=== PATIENT | male | born 1965 | race Caucasian/White ===

== ENCOUNTER 2017-09-04 19:05 | Emergency (ER) | payer OTHER ==
[2017-09-04 19:30] VITALS: BP 133/84; PULSE 70; RESP 18; TEMP 98.4; O2SAT 100
--- NOTE | 2017-09-04 21:13 | C.PDOC ---
History Of Present Illness Patient is a 52 y/o male who presents to the ED with his with a complaint of a skin rash on the distal portion of his right leg for the last 4 to 5 days. Patient notes the rash feeling very itchy and treated it with antibiotic cream. Beleives it has been getting bigger prompting ED visit. Patient notes playing soccer in a men's league but denies any trauma. Does admit that his boots edge reach where the rash started. Denies pain. No other physical complaints at this time. Time Seen by Provider: 09/04/17 20:46 Chief Complaint (Nursing): Abnormal Skin Integrity History Per: Patient History/Exam Limitations: no limitations Onset/Duration Of Symptoms: Days (4-5 days) Current Symptoms Are (Timing): Still Present Quality Of Symptoms: Itching. denies: Painful, Swollen Recent travel outside of the [place]: No Additional History Per: Patient Past Medical History Reviewed: Historical Data, Nursing Documentation, Vital Signs Vital Signs: Last Vital Signs Temp 98.4 F 09/04/17 19:27 Pulse 70 09/04/17 19:27 Resp 18 09/04/17 19:27 BP 133/84 09/04/17 19:27 Pulse Ox 100 09/04/17 22:17 - Medical History PMH: HTN (DOES NOT TAKE MEDICATIONS) Denies: Diabetes, Hepatitis, HIV, Seizures, Sexually Transmitted Disease Surgical History: No Surg Hx Family History: States: Unknown Family Hx - Social History Hx Alcohol Use: Yes Hx Substance Use: No - Immunization History Hx Tetanus Toxoid Vaccination: Yes Hx Influenza Vaccination: Yes Hx Pneumococcal Vaccination: Yes Review Of Systems Constitutional: Negative for: Fever, Chills Musculoskeletal: Negative for: Leg Pain Skin: Positive for: Rash (distal portion of right leg. ) Physical Exam - Physical Exam Appears: Well, Non-toxic, No Acute Distress Skin: Warm, Dry, Rash (maculopapular rash with central hyperpigmentation to right medial ankle; well demarcated and erythematous) Head: Atraumatic, Normacephalic Eye(s): bilateral: Normal Inspection, EOMI Nose: Normal Oral Mucosa: Moist Chest: Symmetrical Respiratory: No Accessory Muscle Use Extremity: Normal ROM (x4), No Tenderness, No Swelling (distal portion of right leg) Pulses: Left Dorsalis Pedis: Normal, Right Dorsalis Pedis: Normal Neurological/Psych: Oriented x3, Normal Speech, Normal Cognition, Normal Motor, Normal Sensation Gait: Steady ED Course And Treatment O2 Sat by Pulse Oximetry: 100 (room air) Pulse Ox Interpretation: Normal Progress Note: Pt was instructed to follow up with pantographer in 1-2 days ore turn to eR if symptoms persist or worsen. Disposition - Disposition Disposition: HOME/ ROUTINE Disposition Time: 21:13 Condition: STABLE Additional Instructions: Follow up with your pantographer in 2-5 days for further evaluation. Take medications as prescribed. Return to the emergency department at any time if symptoms persist or worsen. Prescriptions: Clotrimazole/Betamethasone [Lotrisone] 15 gm EXT BID 10 Days tube Instructions: Dermatitis (ED) Forms: [facility] (Maori) - Clinical Impression Clinical Impression: Rash - Scribe Statement The provider has reviewed the documentation as recorded by the Scribe Sara Duval All medical record entries made by the Scribe were at my direction and personally dictated by me. I have reviewed the chart and agree that the record accurately reflects my personal performance of the history, physical exam, medical decision making, and the department course for this patient. I have also personally directed, reviewed, and agree with the discharge instructions and disposition.
== END 2017-09-04 21:32 | disposition home or self-care (01) ==
LOC: C.ER 19:05
DX: R21 Rash and other nonspecific skin eruption (principal)

== ENCOUNTER 2018-08-14 23:23 | Emergency (ER) | payer SELFPAY ==
--- NOTE | 2018-08-14 23:35 | C.PDOC ---
History Of Present Illness 53-year-old male with PMHx of hypertension presents to the ED with complaints of intermittent dizziness, onset at 3:30pm this afternoon. Patient describes the dizziness as vertigo-like, and notes the symptoms come and go when he moves his head. Also reports feeling anxious and stressed recently with work. Patient notes that when he took a shower tonight, the dizziness recurred, and his blood pressure was found to be 170/94 at home. Patient is seeing his PMD regarding his blood pressure but has not yet been started on medication. Otherwise patient denies any chest pain, SOB, nausea, vomiting, fever, chills, night sweats, melena, hematochezia, headache, numbness, tingling, or extremity weakness. On arrival patient has no dizziness. Time Seen by Provider: 08/14/18 23:34 Chief Complaint (Nursing): Dizziness/Lightheaded History Per: Patient History/Exam Limitations: no limitations Onset/Duration Of Symptoms: Intermittent Episodes Current Symptoms Are (Timing): Better Associated Symptoms Preceding Syncopal Episode: Vertigo Fall Associated With With Symptoms: No, No Injury As Result Of Fall Past Medical History Reviewed: Historical Data, Nursing Documentation, Vital Signs Vital Signs: Last Vital Signs Temp 101.7 F H 08/14/18 23:26 Pulse 86 08/15/18 01:42 Resp 16 08/15/18 01:42 BP 122/70 08/15/18 01:42 Pulse Ox 97 08/15/18 02:40 - Medical History PMH: HTN (DOES NOT TAKE MEDICATIONS) Denies: Diabetes, Hepatitis, HIV, Hypercholesterolemia, Hyperlipidemia, Seizures, Sexually Transmitted Disease Surgical History: No Surg Hx Family History: States: Unknown Family Hx Denies: Stroke, [place] - Social History Hx Tobacco Use: No Hx Alcohol Use: Yes (social, last used Tuesday) Hx Substance Use: No - Immunization History Hx Tetanus Toxoid Vaccination: Yes Hx Influenza Vaccination: Yes Hx Pneumococcal Vaccination: Yes Review Of Systems Cardiovascular: Negative for: Chest Pain, Palpitations, Light Headedness Respiratory: Negative for: Shortness of Breath Gastrointestinal: Negative for: Nausea, Vomiting Neurological: Positive for: Dizziness (vertigo). Negative for: Weakness, Numbness, Incoordination, Change in Speech, Headache Psych: Positive for: Anxiety. Negative for: Depression, Suicidal ideation Physical Exam - Physical Exam Appears: Non-toxic, No Acute Distress Skin: Warm, Dry Head: Atraumatic, Normacephalic Eye(s): bilateral: Normal Inspection, PERRL, EOMI Ear(s): Left: Normal, Right: Normal Oral Mucosa: Moist Neck: Normal, Normal ROM, Trachea Midline, No Midline Cervical Tenderness, No Paracervical Tenderness, Supple, Other (negative kernigs, brudzinskis) Chest: Symmetrical Cardiovascular: Rhythm Regular, Other (No rubs) Respiratory: No Rales, No Rhonchi, No Wheezing Gastrointestinal/Abdominal: Bowel Sounds (active), Soft, No Tenderness, No Distention Extremity: Bilateral: Atraumatic, Normal Color And Temperature, Normal ROM Pulses: Left Dorsalis Pedis: Normal, Right Dorsalis Pedis: Normal Neurological/Psych: Oriented x3, Normal Speech, Normal Cognition, Normal Cranial Nerves (CN 2-12 intact), Normal Motor (strength is 5/5 throughout), Normal Sensation, Other (no focal deficits, no cerebellar signs, no vertical nystagmus ) Gait: Steady Other Neurological Findings: No Facial Palsy, No Forehead Sparing Extremity: Right: No Drift, Left: No Drift, Upper: No Drift, Lower: No Drift ED Course And Treatment - Laboratory Results Result Diagrams: 08/14/18 23:57 08/14/18 23:57 ECG: Interpreted By Me, Viewed By Hi ECG Rhythm: Sinus Rhythm ECG Interpretation: No Acute Changes Interpretation Of ECG: No STEMI, flat T in lead 3 Rate From EC O2 Sat by Pulse Oximetry: 97 (RA) Pulse Ox Interpretation: Normal - CT Scan/US Head CT Other Rad Studies (CT/US): Read By Radiologist, Radiology Report Reviewed CT/US Interpretation: Name: IZABEL KIRKPATRICK Age: 53Years M Date: 08/15/2018. Requesting Physician: Stefan Cardona : 1965. [facility] Procedure Ordered As Accession Number of Images. CT HEAD WO CT HEAD W O CONTRAST [id number]. Provided Clinical History: vertigo. EXAM: CT Head Without Intravenous Contrast. EXAM DATE/TIME: 08/15/2018 12:53 AM. CLINICAL HISTORY: 53 years old, male; Pain; Headache; Additional info: Vertigo. TECHNIQUE: Axial computed tomography images of the head/brain without intravenous contrast. All CT scans at this facility use at least one of these dose optimization techniques: automated. exposure control; mA and/or kV adjustment per patient size (includes targeted exams where dose is. matched to clinical indication); or iterative reconstruction. Coronal and sagittal reformatted images were created and reviewed. COMPARISON: No relevant prior studies available. FINDINGS: Brain: Normal. No hemorrhage. No significant white matter disease. No edema. Ventricles: Normal. No ventriculomegaly. Bones /joints: Normal. No acute fracture. Sinuses: Normal as visualized. No acute sinusitis. Mastoid air cells: Normal as visualized. No mastoid effusion. Soft tissues: Normal. IMPRESSION: No acute findings. Medical Decision Making Medical Decision Making: Well appearing 53 yr old male p/w dizziness, w/ movement of head as well vertigo sensation. No meningeal signs. Pt notes not drinking as much fluid today. No CP or SOB. No hx of blood clots or leg swelling or recent trauma or surgery. Pt also notes more stress at work but no SI or HI. Will seek imaging and labs given HTN and vertigo w/ head movement. Initial Plan: --EKG --Blood work --UA --Chest X-Ray --Head CT w/o contrast --Meclizine PO --Reassess and dispo 0246 Repeat neuro exam unremarkable. Normal TMs labs, ekg, XRAY and CT unremarkable CT results discussed with patient. Likely BPV vs HTN related Dizziness resolved per pt pressure improved. Pt requesting BP meds, will give amlodipine and meclizine for home and have pt f/u with clinic and neuro Disposition - Disposition Disposition Time: 02:45 Condition: GOOD Instructions: Vertigo (a Type of Dizziness), High Blood Pressure in Adults Forms: [employer] (Polish) - Clinical Impression Clinical Impression: Dizziness, Hypertension - Scribe Statement The provider has reviewed the documentation as recorded by the Scribe (Tiffanie Powers) Provider Attestation: All medical record entries made by the Scribe were at my direction and personally dictated by me. I have reviewed the chart and agree that the record accurately reflects my personal performance of the history, physical exam, medical decision making, and the department course for this patient. I have also personally directed, reviewed, and agree with the discharge instructions and disposition.
[2018-08-15] LABS: BASO # 0.1 K/uL (0.0-0.2); BASO % 0.8 % (0.0-2.0); EOS # 0.1 K/uL (0.0-0.7); EOS % 1.1 % (0.0-4.0); HEMOGLOBIN 13.7 g/dL (12.0-18.0); LYMPH # 4.2 K/uL (1.0-4.3); LYMPH % 43.8 % (20.0-40.0); MEAN CORPUSCULAR HEMOGLOBIN 29.6 pg (27.0-31.0); MEAN CORPUSCULAR HGB CONC 34.5 g/dL (33.0-37.0); MEAN PLATELET VOLUME 7.6 fL (7.2-11.7); NEUT # 4.2 K/uL (1.8-7.0); NEUT % 44.3 % (50.0-75.0); RBC 4.62 Mil/uL (4.40-5.90); RED CELL DISTRIBUTION WIDTH 13.1 % (11.5-14.5); WHITE BLOOD COUNT 9.5 K/uL (4.8-10.8)
[2018-08-15 00:19] LABS: ALB/GLOB RATIO 1.5 (1.0-2.1); ALBUMIN 4.3 g/dL (3.5-5.0); ALT/SGPT 46 U/L (21-72); AST/SGOT 24 U/L (17-59); BLOOD UREA NITROGEN 13 mg/dL (9-20); CALCIUM 9.7 mg/dl (8.6-10.4); GFR NON-AFRICAN AMERICAN > 60
[2018-08-15 00:46] VITALS: RESP 16
[2018-08-15 01:15] LABS: URINE BILIRUBIN NEGATIVE (NEGATIVE); URINE BLOOD NEGATIVE (NEGATIVE); URINE CLARITY Clear (Clear); URINE COLOR Straw (YELLOW); URINE GLUCOSE (UA) NORMAL (Normal); URINE LEUKOCYTE ESTERASE NEG Leu/uL (Negative); URINE PROTEIN NEGATIVE (NEGATIVE); URINE UROBILINOGEN NORMAL mg/dL (0.2-1.0)
[2018-08-15 01:43] VITALS: PULSE 86
[2018-08-15 02:31] VITALS: O2SAT 97
[2018-08-15 03:16] VITALS: BP 134/83; TEMP 98.7
--- NOTE | 2018-08-15 08:25 | CT ---
Date of service: 08/15/2018 PROCEDURE: CT HEAD WITHOUT CONTRAST. HISTORY: vertigo COMPARISON: None available. TECHNIQUE: Axial computed tomography images were obtained through the head/brain without intravenous contrast. Radiation dose: Total exam DLP = 959 mGy-cm. This CT exam was performed using one or more of the following dose reduction techniques: Automated exposure control, adjustment of the mA and/or kV according to patient size, and/or use of iterative reconstruction technique. FINDINGS: HEMORRHAGE: No intracranial hemorrhage. BRAIN: No mass effect or edema. No atrophy or chronic microvascular ischemic changes. VENTRICLES: Unremarkable. No hydrocephalus. CALVARIUM: Unremarkable. PARANASAL SINUSES: Unremarkable as visualized. No significant inflammatory changes. MASTOID AIR CELLS: Unremarkable as visualized. No inflammatory changes. OTHER FINDINGS: None. IMPRESSION: No acute intracranial abnormality. If symptoms persists, consider correlation with MR. These findings were preliminarily reported at 2:20 a.m. on 08/15/[address] Patrice Torres from [facility].
--- NOTE | 2018-08-15 11:01 | RAD ---
Date of service: 08/15/2018 HISTORY: febrile, dizzy COMPARISON: No prior. TECHNIQUE: Chest PA and lateral FINDINGS: LUNGS: No active pulmonary disease. PLEURA: No significant pleural effusion identified. No pneumothorax apparent. CARDIOVASCULAR: Normal. OSSEOUS STRUCTURES: Asymmetrical left 1st rib costocartilaginous junctional hypertrophic calcification ossification Thoracic spondylosis. VISUALIZED UPPER ABDOMEN: Normal. OTHER FINDINGS: None. IMPRESSION: No active cardiopulmonary disease. Asymmetrical left 1st rib costocartilaginous junctional hypertrophic calcification ossification Thoracic spondylosis.
--- NOTE | 2018-08-15 11:47 | CARD ---
APPROVED REPORT Date of service: 08/14/2018 EKG Measurement Heart [id number] <Conclusion> Normal sinus rhythm Normal ECG
== END 2018-08-15 03:16 | disposition home or self-care (01) ==
LOC: C.ER 23:23
DX: I10 Essential (primary) hypertension (principal); R42 Dizziness and giddiness

== ENCOUNTER 2018-08-15 19:40 | Emergency (ER) | payer OTHER ==
[2018-08-15 19:49] VITALS: RESP 18; O2SAT 98
--- NOTE | 2018-08-15 20:29 | C.PDOC ---
History Of Present Illness 53 y/o M c PMHx HTN p/w vertigo x 2 days. Patient here yesterday with same symptoms, had unremarkable work up, discharged on meclizine and instructed to f/ u with neuro and PMD. Patient filled prescription but did not take, had another episode of spinning today and decided it was too severe and came to ED. Currently in ED, states symptoms resolving. Denies numbness, weakness, chest pain, neck stiffness. Time Seen by Provider: 08/15/18 19:54 Chief Complaint (Nursing): Dizziness/Lightheaded Past Medical History Vital Signs: Last Vital Signs Temp 98.2 F 08/15/18 20:44 Pulse 65 08/15/18 20:44 Resp 18 08/15/18 20:44 BP 162/97 H 08/15/18 20:44 Pulse Ox 98 08/15/18 20:44 - Medical History PMH: HTN (DOES NOT TAKE MEDICATIONS) Denies: Diabetes, Hepatitis, HIV, Hypercholesterolemia, Hyperlipidemia, Seizures, Sexually Transmitted Disease Family History: States: Unknown Family Hx Denies: Stroke, [place] - Social History Hx Tobacco Use: No Hx Alcohol Use: Yes (social, last used Tuesday) Hx Substance Use: No - Immunization History Hx Tetanus Toxoid Vaccination: Yes Hx Influenza Vaccination: Yes Hx Pneumococcal Vaccination: Yes Review Of Systems Except As Marked, All Systems Reviewed And Found Negative. Cardiovascular: Negative for: Chest Pain Respiratory: Negative for: Shortness of Breath Physical Exam - Physical Exam Additional Physical Exam Comments: Gen: NAD Head: NC/AT Eyes: PERRL ENT: MMM Neck: No rigidity CV: RR Lungs: CTA b/l Abd: Soft, NT Back: No CVA tenderness Extremities: No edema Skin: No rash Neuro: Steady gait, no focal deficit, alert. ED Course And Treatment O2 Sat by Pulse Oximetry: 98 Medical Decision Making Medical Decision Making: Educated on presumed diagnosis of BPPV. Given follow up information for ENT. Instructed to return to ED for worsening pain, intractible vertigo, or any other problem. Disposition - Disposition Referrals: Aron Oh MD [Staff Provider] - Disposition: HOME/ ROUTINE Disposition Time: 20:29 Condition: STABLE Prescriptions: Meclizine [Antivert] 25 mg PO TID PRN #20 tab PRN Reason: Dizziness Instructions: Vertigo (a Type of Dizziness) Forms: [employer] (German) - Clinical Impression Clinical Impression: BPPV (benign paroxysmal positional vertigo)
[2018-08-15 20:45] VITALS: BP 162/97; PULSE 65; TEMP 98.2
== END 2018-08-15 20:43 | disposition home or self-care (01) ==
LOC: C.ER 19:40
DX: H81.10 Benign paroxysmal vertigo, unspecified ear (principal); I10 Essential (primary) hypertension